=== PATIENT | male | born 1995 | race Caucasian/White ===

== ENCOUNTER 2016-07-16 03:35 | Emergency (ER) | payer MEDICAID ==
[2016-07-16 03:42] VITALS: TEMP 97.7
[2016-07-16] MEDS ORDERED: ONDANSETRON 4 MG/2 ML VIAL IVP ONE (03:50)
[2016-07-16] MEDS ORDERED: FAMOTIDINE 20 MG/NACL 50 ML IV ONE (03:50)
[2016-07-16] MEDS ORDERED: NS 1,000 ML IV ONE ×2 (03:50)
[2016-07-16] MEDS ORDERED: HYDROmorphONE/DILAUDID 1 MG/ML SYR IVP ONE (03:50)
[2016-07-16] MEDS ORDERED: ONDANSETRON 4MG PREPACK#2 BTL TAKEHOME ONE (03:58)
--- NOTE | 2016-07-16 03:58 | EDPHY ---
H & P Time Seen by Provider: 07/16/16 03:44 HPI/ROS: HPI Nausea, vomiting, diarrhea. 21-year-old male by private vehicle with his girlfriend. He reports 4 hours of nonstop nausea with nonbilious, nonbloody vomiting and multiple episodes of watery diarrhea. No bloody or melenic stool. He reports pain is diaphragmatic area from vomiting and back pain from vomiting. No ill contacts. No foreign travel. Denies any change in diet. He has no significant past medical history. No surgical history. ROS: Constitutional: No fever, no chills. No weakness. Eyes: No discharge. No changes in vision. ENT: No sore throat. No nasal congestion or rhinorrhea. Respiratory: No cough. No shortness of breath. Cardiac: No chest pain, no palpitations. Gastrointestinal: As above. Genitourinary: No hematuria. No dysuria or increased frequency with urination. Musculoskeletal: As above. No neck pain. No myalgias or arthralgias. Skin: No rashes. Neurological: No headache. No focal weakness or altered sensation. Past medical history: None. Social history: Student at [employer]. Here with girlfriend. Nonsmoker. Physical Exam: General Appearance: Alert, he appears uncomfortable. This patient is responding to questions appropriately and in full sentences. This patient appears well-hydrated and well-nourished. Eyes: Pupils equal and round no pallor or injection. No lid edema, erythema or injection. Respiratory: There are no retractions, lungs are clear to auscultation with good air movement bilaterally. Cardiovascular: Regular rate and rhythm. No murmur. Gastrointestinal: Abdomen is soft with mild and vague tenderness on palpation throughout, no masses, bowel sounds normal. No focal tenderness at McBurney's point. No Jackson sign. Neurological: Motor sensory function is grossly intact. Cranial nerves are normal. Gait is normal. Skin: Warm and dry, no rashes. Musculoskeletal: Neck is supple and nontender. Extremities are symmetrical. All joints range without pain or impingement. Psychiatric: No agitation. No depression. Database: EKG: Imaging: Procedures: Emergency department course: Vital signs reviewed and are normal. IV placed. He was started on IV normal saline with 2 L to be given over the next 1-2 hours. He was initially given 0.5 mg of IV hydromorphone, 4 mg of IV Zofran and 20 mg of IV Pepcid. 4:45 a.m., patient re-evaluated. He is doing much better at this time. He is on his 2nd L of IV normal saline. 5:10 a.m., patient resting comfortably. Repeat abdominal exam is soft, nontender nondistended. He has been taking oral fluids. He feels comfortable going home and I feel he is safe for discharge. I will prescribe him Zofran for nausea and vomiting. Follow-up and return to emergency department precautions discussed with him. All of his questions were answered. He was discharged in good condition with his girlfriend who is driving. Differential Diagnosis: The differential diagnosis on this patient includes but is not limited to food borne illness, viral gastroenteritis. Bowel obstruction, other surgical etiology unlikely. This represents a partial list of diagnoses considered. These considerations are based on history, physical exam, past history, reassessment and diagnostic testing. Smoking Status: Never smoked Constitutional: Initial Vital Signs Temperature (C) 36.5 C 07/16/16 03:40 Heart Rate 78 07/16/16 03:40 Respiratory Rate 18 07/16/16 03:40 Blood Pressure 127/67 H 07/16/16 03:40 O2 Sat (%) 99 07/16/16 03:40 O2 Delivery Mode Room Air Allergies/Adverse Reactions: No Known Allergies Allergy (Unverified 07/16/16 03:40) Home Medications: Medication Instructions Recorded Ondansetron Odt [Zofran Odt 4 mg 4 mg PO Q4PRN PRN #10 tab 07/16/16 (*)] Medical Decision Making - Data Points Laboratory Results: Laboratory Results 07/16/16 04:05 07/16/16 04:05 Sodium 140 mEq/L mEq/L (134-144) Potassium 4.1 mEq/L mEq/L (3.5-5.2) Chloride 104 mEq/L mEq/L (97-110) Carbon Dioxide 20 mEq/l L mEq/l (22-31) Anion Gap 16 mEq/L mEq/L (8-16) BUN 25 mg/dL H mg/dL (7-23) Creatinine 1.2 mg/dL mg/dL (0.7-1.3) Estimated GFR > 60 Glucose 147 mg/dL H mg/dL (70-100) Calcium 10.2 mg/dL mg/dL (8.5-10.4) Medications Given: Discontinued Medications Hydromorphone HCl (Dilaudid) 0.5 mg IVP EDNOW ONE Stop: 07/16/16 03:51 Last Admin: 07/16/16 03:55 Dose: 0.5 mg Sodium Chloride (Ns) 1,000 mls @ 0 mls/hr IV ONCE ONE PRN Reason: Wide Open Stop: 07/16/16 03:51 Last Admin: 07/16/16 03:50 Dose: 1,000 mls Sodium Chloride (Ns) 1,000 mls @ 0 mls/hr IV ONCE ONE PRN Reason: Wide Open Stop: 07/16/16 03:51 Last Admin: 07/16/16 03:50 Dose: 1,000 mls Famotidine/Sodium Chloride (Pepcid 20 Mg (Premix)) 50 mls @ 200 mls/hr IV EDNOW ONE Stop: 07/16/16 04:04 Last Admin: 07/16/16 04:00 Dose: 50 mls Ondansetron HCl (Zofran) 4 mg IVP EDNOW ONE Stop: 07/16/16 03:51 Last Admin: 07/16/16 03:52 Dose: 4 mg Ondansetron HCl (Zofran Odt 4 Mg Prepack#2) 1 btl TAKEHOME EDNOW ONE Stop: 07/16/16 03:59 Last Admin: 07/16/16 05:02 Dose: 1 btl Departure - Departure Disposition: Home, Routine, Self-Care Clinical Impression: Vomiting, Diarrhea Condition: Good Instructions: Acute Nausea and Vomiting (ED), Acute Diarrhea (ED) Additional Instructions: Read and follow provided instructions. Follow-up with your primary care physician in 1-2 days for re-evaluation at the [facility]. Keep well hydrated. A good fluid to drink is water mixed with Gatorade and a 1- 1 dilution. Take medication as prescribed for nausea. Return to the emergency department for worsening symptoms, abdominal pain, vomiting and inability to keep fluids down despite medications, fever or other serious concerns. Referrals: NONE *PRIMARY CARE P,. [Primary Care Provider] - As per Instructions Prescriptions: Ondansetron Odt [Zofran Odt 4 mg (*)] 4 mg PO Q4PRN PRN #10 tab PRN Reason: For Nausea & Vomiting
[2016-07-16 04:37] LABS: ANION GAP 16 mEq/L (8-16); CALCIUM 10.2 mg/dL (8.5-10.4); CARBON DIOXIDE 20 mEq/l (22-31); CHLORIDE 104 mEq/L (97-110); CREATININE 1.2 mg/dL (0.7-1.3); GLOMERULAR FILTRATION RATE > 60; GLUCOSE 147 mg/dL (70-100); POTASSIUM 4.1 mEq/L (3.5-5.2); SODIUM 140 mEq/L (134-144)
[2016-07-16 05:03] VITALS: BP 119/64; PULSE 76; RESP 16; O2SAT 97
== END 2016-07-16 05:03 | disposition home or self-care (01) ==
DX: R19.7 Diarrhea, unspecified (principal); R11.10 Vomiting, unspecified
CPT/HCPCS: 96374; J1170; J2405